=== PATIENT | male | born 1970 ===

== ENCOUNTER 2018-03-04 11:03 | Inpatient (IN) | payer OTHER ==
[~2018-03-04] VITALS: Ht 182.9 cm; Wt 5.0 kg
--- NOTE | 2018-03-04 11:28 | NUR ---
SE RECIBE PTE ALERTA Y ORIENTADO X3,REFIERE TENER HEMORROIDES ,REFIERE TENER MUCHO DOLOR.
--- NOTE | 2018-03-04 13:04 | NUR ---
SE RECIBE PTE MASCULINOD E 47YRS ALERTA CONCIETE Y TRANQUILA DE ES EVALUADAPOR LA RORY.RACHEL QUIENODENA TRATAMIENTO LA CUAL SE EJECUTA,
[2018-03-06] MEDS ORDERED: NEURONTIN300 MG PO (09:53)
[2018-03-06] MEDS ORDERED: OXYC1TAB9 PO (09:53)
[2018-03-06] MEDS ORDERED: KETO10TA2 PO (09:53)
[2018-03-06] MEDS ORDERED: NUPERCAINAL56.7 GM TOP (09:55)
== END 2018-03-06 17:44 | disposition home or self-care (01) | DRG 349 ==
LOC: ER 11:03 → SURH 14:52
PROVIDERS: ADMIT Surgery
PROC: 06BY4ZC Excision of Hemorrhoidal Plexus, Percutaneous Endoscopic Approach (ICD-10-PCS; 2018-03-05)
PROC: 3E0T3BZ Introduction of Anesthetic Agent into Peripheral Nerves and Plexi, Percutaneous Approach (ICD-10-PCS; 2018-03-05)
PROC: 06LY4CC Occlusion of Hemorrhoidal Plexus with Extraluminal Device, Percutaneous Endoscopic Approach (ICD-10-PCS; principal; 2018-03-05 07:00)
DX: K64.5 Perianal venous thrombosis (principal); K64.8 Other hemorrhoids